=== PATIENT | female | born 1965 | race Hispanic/Latino ===

== ENCOUNTER 2016-08-08 09:43 | Day surgery (SDC) | payer OTHER ==
[2016-08-08] MEDS ORDERED: Propofol 10 mg/ml Inj (20 ML) ONE (11:54)
[2016-08-08] MEDS ORDERED: Midazolam 2 MG/2 ML VIAL ONE (11:55)
[2016-08-08] MEDS ORDERED: Lidocaine 1% Inj (20ml) ONE (11:55)
[2016-08-08] MEDS ORDERED: Lactated Ringer's 1,000 ML IV SCH (12:39)
[2016-08-08 13:03] VITALS: TEMP 97.9
[2016-08-08 13:43] VITALS: BP 137/80; PULSE 78; RESP 16; O2SAT 96
== END 2016-08-08 15:17 | disposition home or self-care (01) ==
LOC: ENDO 09:43
PROVIDERS: ATTEND Internal Medicine Gastroenterology
DX: D12.0 Benign neoplasm of cecum (principal); K57.30 Diverticulosis of large intestine without perforation or abscess without bleeding; K64.8 Other hemorrhoids; K62.1 Rectal polyp; K63.89 Other specified diseases of intestine; K29.50 Unspecified chronic gastritis without bleeding; D50.9 Iron deficiency anemia, unspecified; R19.4 Change in bowel habit; R10.9 Unspecified abdominal pain; K22.70 Barrett's esophagus without dysplasia; K20.9 Esophagitis, unspecified; Z85.3 Personal history of malignant neoplasm of breast
CPT/HCPCS: 43239; 45380; 88305; 88312; 88342; J2250; J2704; J3010; J7040; J7120